=== PATIENT | female | born 1990 | race Caucasian/White ===

== ENCOUNTER 2019-02-12 16:00 | Emergency (ER) | payer OTHER ==
[2019-02-12] MEDS ORDERED: Sodium Chloride 0.9% 1,000 ML IV SCH (16:45)
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
[2019-02-12] MEDS ORDERED: Sodium Chloride 0.9% 10 ML Syringe FLUSH ONE (16:46)
[2019-02-12] MEDS ORDERED: Iopamidol 612 MG/ML 100 ML Bottle IV SCH (17:00)
[2019-02-12] MEDS: Sodium Chloride 0.9% 80 ML IV ONE (17:37)
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
[2019-02-12] MEDS ORDERED: Ketorolac 30 MG/ML SDV IVPUSH ONE (18:33)
== END 2019-02-12 18:49 | disposition home or self-care (01) ==
LOC: JP.ED 16:00
DX: S80.212A Abrasion, left knee, initial encounter (principal); R10.10 Upper abdominal pain, unspecified; Z98.890 Other specified postprocedural states; Z90.49 Acquired absence of other specified parts of digestive tract; V86.56XA Driver of dirt bike or motor/cross bike injured in nontraffic accident, initial encounter
CPT/HCPCS: 74160; 81001; 81025; 96361; 96374; 99284; J1885; J7030; Q9967